=== PATIENT | female | born 1980 | race Caucasian/White ===

== ENCOUNTER 2017-08-24 23:46 | Emergency (ER) | payer OTHER ==
[2017-08-25 00:02] VITALS: BP 116/72; PULSE 63; RESP 16; O2SAT 99
--- NOTE | 2017-08-25 00:09 | PD ---
HPI Chief Complaint: Back/ Neck Pain or Injury Time Seen by Provider: 00:03 Travel History International Travel<30 days: No Contact w/Intl Traveler<30days: No Traveled to known affect area: No History of Present Illness HPI The patient is a 36-year-old female who presents to the emergency department for back pain. The patient has a history of intermittent low back pain with muscle spasms, with similar episodes in the past. 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 The patient developed lower back pain earlier today and then went into a hyperbaric chamber as part of training to perform science experiment and space. The patient states she went to an altitude of 22,000 feet and then back to see level in a controlled manner. However, when she was done she noticed her back pain had increased. The patient states the back pain is located in the lower back, radiates to the mid thigh area and mid calf area bilaterally, is worse with movement, and alleviated at rest. She does have a history of similar symptoms in the past. The patient was administered morphine 10 mg intravenously prior to arrival. The patient denies any acute weakness of lower extremities, but does note pain making walking difficult. She denies any acute numbness or tingling of the lower extremities. She denies any urinary incontinence. PFSH Past Medical History Medical History: Denies Significant Hx Diminished Hearing: No Musculoskeletal: Yes (CHRONIC BACK PAIN) Immunizations Current: Yes ?: Unknown Past Surgical History Surgical History: No Previous Surgery Social History Alcohol Use: No Tobacco Use: No Substance Use: No Allergies-Medications (Allergen,Severity, Reaction): Coded Allergies: Penicillins (Verified Allergy, Intermediate, 08/25/17) promethazine (Verified Allergy, Intermediate, Itching, 08/25/17) Reported Meds & Prescriptions Reported Meds & Active Scripts Active [place] (Hydrocodone-Acetaminophen) 5 Mg-325 Mg Tab 1 Tab PO Q6H PRN Flexeril (Cyclobenzaprine HCl) 10 Mg Tab 10 Mg PO TID 10 Days Ibuprofen 600 Mg Tab 600 Mg PO Q6H PRN Review of Systems Except as stated in HPI: all other systems reviewed are Neg General / Constitutional: No: Fever HENT: No: Headaches, Neck Pain Cardiovascular: No: Chest Pain or Discomfort Respiratory: No: Shortness of Breath Gastrointestinal: No: Nausea, Vomiting, Abdominal Pain Genitourinary: No: Dysuria, Incontinence Musculoskeletal: Positive: Pain Skin: No Rash Neurologic: No: Weakness, Paresthesia, Sensory Disturbance Physical Exam Narrative GENERAL: Awake, alert, 36-year-old female who appears her stated age and is in no acute respiratory distress. SKIN: Focused skin assessment warm/dry. HEAD: Atraumatic. Normocephalic. EYES: No injection or drainage. GASTROINTESTINAL: Abdomen soft, non-tender, nondistended. Back: No tenderness over the thoracic or lumbar vertebrae. Mild tenderness of the sacroiliac bilaterally. MUSCULOSKELETAL: Subungual hematoma which appears old on the right great toenail. Flexion of the great toes bilateral is 5 out of 5. Plantarflexion is 5 out of 5. Extension the knees bilateral is 4+/5 with breakaway strength. Flexion of the hips bilateral is 5 out of 5. Abduction abduction of the knees bilateral is 5 out of 5. Positive dorsalis pedal pulses bilaterally. NEUROLOGICAL: Awake and alert. No obvious cranial nerve deficits. Motor grossly within normal limits. Normal speech. Sensation is intact with medial, lateral, dorsal aspect of the feet bilaterally. PSYCHIATRIC: Appropriate mood and affect; insight and judgment normal. Data Data Last Documented VS Vital Signs Date Time Temp Pulse Resp B/P (MAP) Pulse Ox O2 Delivery O2 Flow Rate FiO2 08/25/17 00:19 08/25/17 00:02 63 16 99 Room Air Orders Orders Dexamethasone Inj (Decadron Inj) (08/25/17 00:15) Ketorolac Inj (Toradol Inj) (08/25/17 00:15) Diazepam (Valium) (08/25/17 00:15) Ed Discharge Order (08/25/17 00:31) Orphenadrine Inj (Norflex Inj) (08/25/17 01:30) Ketorolac Inj (Toradol Inj) (08/25/17 01:30) MDM Medical Decision Making Medical Screen Exam Complete: Yes Emergency Medical Condition: Yes Medical Record Reviewed: Yes Differential Diagnosis Differential diagnosis includes back strain, compression fracture, radiculopathy , herniated disc, spinal stenosis, sacroiliitis. Narrative Course The patient has no direct trauma to the back, I doubt spontaneous compression fracture. Patient does have pain is worse with movement and relieved at rest. I did review online possible complications of hyperbaric chamber therapy and use , I saw no specific mention of back pain. The patient is neurologically intact and has a history of similar symptoms. She received morphine 10 mg intravenously by EMS prior to arrival with improvement of her symptoms from a 10 /10 to a 5/10. The patient was administered Decadron and Toradol. I will discharge patient home on ibuprofen, Flexeril, [place] at night as needed. She is advised to follow-up with her primary physician. Diagnosis Primary Impression: Back pain Qualified Codes: M54.42 - Lumbago with sciatica, left side; M54.41 - Lumbago with sciatica, right side Patient Instructions: General Instructions Additional Instructions: Medications as directed. Follow-up with your primary physician. Return if symptoms worsen or progress. Med/Other Pt SpecificInfo: Prescription(s) given Scripts Hydrocodone-Acetaminophen ([place]) 5 Mg-325 Mg Tab 1 TAB PO Q6H Y for PAIN, #10 TAB 0 Refills Prov: Joss Barnes MD 08/25/17 Cyclobenzaprine (Flexeril) 10 Mg Tab 10 MG PO TID for Muscle Spasm for 10 Days, #30 TAB 0 Refills Prov: Joss Barnes MD 08/25/17 Ibuprofen (Ibuprofen) 600 Mg Tab 600 MG PO Q6H Y for Pain/Inflammation, #20 TAB 0 Refills Prov: Joss Barnes MD 08/25/17 Disposition: 01 DISCHARGE HOME Condition: Stable Joss Barnes MD Aug 25, 2017 00:09
[2017-08-25] MEDS ORDERED: KETOROLAC TROMETHAMINE 30 MG/ML (IVP) VIAL IV PUSH ONE ×2 (00:15→01:30)
[2017-08-25] MEDS ORDERED: DEXAMETHASONE SOD PHOS 4 MG/ML VIAL IV PUSH ONE (00:15)
[2017-08-25] MEDS ORDERED: DIAZEPAM 5 MG TAB PO ONE (00:15)
[2017-08-25] MEDS ORDERED: CYCL10TA PO (00:16)
[2017-08-25] MEDS ORDERED: NORC5TAB PO (00:16)
[2017-08-25] MEDS ORDERED: IBUP-232 PO (00:16)
[2017-08-25] MEDS ORDERED: ORPHENADRINE INJ 60 MG/2 ML AMP IV ONE (01:30)
== END 2017-08-25 02:51 | disposition home or self-care (01) ==
LOC: NEPD 23:46
DX: M54.41 Lumbago with sciatica, right side (principal); M54.42 Lumbago with sciatica, left side; Z88.0 Allergy status to penicillin
CPT/HCPCS: 96374; 96375; 96376; 99284; J1100; J1885; J2360